=== PATIENT | male | born 1985 | race Caucasian/White ===

== ENCOUNTER → 2021-10-15 12:59 | Outpatient (ROUT) | payer OTHER, SELFPAY ==
[2021-10-15 13:06] LABS: Add Manual Diff / Slide Review NO; Basophils Absolute Auto 0 /uL (0-100); Basophils Percent Auto 0.4 % (0-2); Eosinophils Absolute Auto 100 /uL (0-450); Eosinophils Percent Auto 0.6 % (2-4); Hemoglobin 13.4 g/dL (13.5-17.5); Lymphocytes Absolute Auto 1800 /uL (1100-4500); Lymphocytes Percent Auto 18.9 % (25-40); Mean Corpuscular HGB Conc 32.6 % (30-36); Mean Corpuscular Hemoglobin 26.4 PG (26-34); Mean Corpuscular Volume 80.8 fL (80-100); Monocytes Absolute Auto 700 /uL (0-900); Monocytes Percent Auto 7.3 % (3-14); Neutrophils Absolute Auto 6900 /uL (1500-7000); Neutrophils Percent Auto 72.8 % (50-75); Platelet Count 166 X10^3/uL (150-400); Red Blood Cell Count 5.07 X10^6/uL (4.5-5.9); White Blood Cell Count 9.5 X10^3/uL (4.5-11.0)
[2021-10-15 13:15] LABS: Alanine Aminotransferase 27 IU/L (<50); Albumin 4.5 g/dL (3.5-5.0); Albumin Globulin Ratio 1.4 (1.0-2.8); Alkaline Phosphatase 100 U/L (38-126); Aspartate Aminotransferase 21 IU/L (17-59); BUN Creatinine Ratio 17.1 (6-22); Bilirubin Total 0.9 mg/dL (0.2-1.3); Blood Urea Nitrogen 12 mg/dL (9-20); Calcium 10.2 mg/dL (8.4-10.2); Carbon Dioxide 28 mmol/L (22-32); Chloride 104 mmol/L (98-107); Estimated Glomerular Filt Rate > 60.0 mL/min (>60); Globulin 3.3 g/dL (1.7-4.1); Glucose 182 mg/dL (70-100); Potassium 5.3 mmol/L (3.4-5.1); Sodium 141 mmol/L (137-145); Total Protein 7.8 g/dL (6.3-8.2)
[2021-10-15 23:34] LABS: Amylase 95 U/L (30-110); HEMOLYSIS < 15 (0-50); Lipase 683 U/L (23-300)
== END ==
PROVIDERS: Visit Provider Family Medicine
DX: M54.9 Dorsalgia, unspecified (principal); R50.9 Fever, unspecified; K85.90 Acute pancreatitis without necrosis or infection, unspecified
CPT/HCPCS: 80053; 82150; 83690; 85025

== ENCOUNTER → 2023-08-07 13:04 | Outpatient (ROUT) | payer OTHER, SELFPAY | PROVIDERS: Visit Provider Family Medicine | DX: I88.9 Nonspecific lymphadenitis, unspecified (principal) | CPT/HCPCS: 87081; 87147 ==

== ENCOUNTER → 2024-04-16 12:39 | Outpatient (ROUT) | payer OTHER, SELFPAY ==
[2024-04-16 13:13] LABS: Cholesterol 154 mg/dL (140-199); HDL Cholesterol 20 mg/dL (40-60)
[2024-04-16 13:44] LABS: Triglycerides 1323 mg/dL (35-150)
== END ==
PROVIDERS: Visit Provider Family Medicine
DX: E78.1 Pure hyperglyceridemia (principal)
CPT/HCPCS: 80061

== ENCOUNTER → 2024-07-04 10:14 | Outpatient (CLI) | payer OTHER, SELFPAY ==
--- NOTE | 2024-07-04 | DI.RAD.S_ITS ---
PROCEDURE: XR ANKLE RT MIN 3V INDICATIONS: Strain of right Achilles tendon, initial encounter TECHNIQUE: 3 views of the ankle were acquired. COMPARISON: None. FINDINGS: Bones: No fractures or dislocations. Ankle mortise is normally aligned. No suspicious bony lesions. Soft tissues: No tibiotalar joint effusion. Achilles tendon appears normal. IMPRESSION: No acute ankle fracture or dislocation. Dictated by: Carlos James M.D. on 07/05/2024 at 11:29 Approved by: Carlos James M.D. on 07/05/2024 at 11:31
== END ==
PROVIDERS: Referring Provider Family Medicine; Visit Provider Family Medicine
DX: S86.011A Strain of right Achilles tendon, initial encounter (principal); X58.XXXA Exposure to other specified factors, initial encounter
CPT/HCPCS: 73610

== ENCOUNTER → 2024-07-06 14:50 | Outpatient (CLI) | payer OTHER, SELFPAY ==
--- NOTE | 2024-07-06 14:53 | DI.MRI.S_ITS ---
PROCEDURE: MR ANKLE RT WO CON INDICATIONS: Strain of right Achilles tendon, initial encounter TECHNIQUE: Noncontrast sagittal T1 spin echo and T2 fast spin echo with fat saturation, axial proton density fast spin echo and T2 fast spin echo with fat saturation, coronal T1 spin echo and T2 fast spin echo with fat saturation through the ankle/hindfoot. COMPARISON: None. FINDINGS: Image quality: Excellent Tendons: Mild tenosynovitis of the posterior tibialis, and the flexor digitorum longus. Moderate tenosynovitis of the flexor hallucis longus with moderate amount of fluid at the master knot of [place]an. The extensor tendons, and the peroneal tendons are unremarkable. Severe tendinosis of the distal Achilles tendon with near complete rupture, approximately 7.5 cm proximal to the calcaneal insertion. No significant retraction of the distal Achilles tendon. Small amount of hematoma about the distal Achilles tendon. Ligaments: The anterior and the posterior tibiofibular ligaments are intact. The anterior and the posterior talofibular ligaments are intact. The calcaneofibular ligament is intact. The deep portion of the deltoid ligament is intact. Sinus tarsi: No fibrosis Plantar fascia: Mild thickening of the central cord, raising concern for plantar fasciitis. Muscles: Normal in signal. Bones: No acute fracture. No marrow edema. Small tibiotalar effusion. IMPRESSION: 1. Tenosynovitis of the flexor tendons. 2. Severe tendinosis of the distal Achilles tendon with near complete rupture. Small associated hematoma. No significant tendon retraction. 3. Findings suggestive of plantar fasciitis. Dictated by: Suma Paige M.D. on 07/08/2024 at 11:19 Approved by: Suma Paige M.D. on 07/08/2024 at 11:26
--- NOTE | 2024-07-06 14:54 | DI.MRI.S_ITS ---
PROCEDURE: MR LOWER LEG RT WO CON INDICATIONS: Strain of right Achilles tendon, initial encounter TECHNIQUE: Noncontrast coronal and sagittal T1 spin echo and STIR; axial T1 spin echo and T2 fast spin echo with fat saturation through the right leg COMPARISON: None. FINDINGS: Image quality: Excellent Bones: The visualized bone marrow demonstrates normal signal on all sequences. The overlying cortex appears intact. No fractures lines or intra-osseous lesions. Soft tissues: There is full-thickness, partial width tear of the small portion of the medial aspect of the anterior gastrocnemius aponeurosis, at the level of the mid leg, with associated small hematoma. No muscle retraction of the gastrocnemius. Additional trace hematoma tracking between the medial head of the gastrocnemius and the soleus muscle. There is mild muscle edema of the distal soleus. Complete rupture of the distal Achilles tendon, better evaluated on MR ankle of the same day. Moderate subcutaneous edema of the medial and lateral ankle. IMPRESSION: 1. Full-thickness, partial width tear of medial aspect of the anterior gastrocnemius aponeurosis, at the level of the mid leg, with associated small hematoma. 2. Rupture of the distal Achilles tendon, better evaluated on MR ankle the same day. Dictated by: Suma Paige M.D. on 07/08/2024 at 11:08 Approved by: Suma Paige M.D. on 07/08/2024 at 11:19
== END ==
PROVIDERS: PCP Family Medicine; Referring Provider Family Medicine; Visit Provider Family Medicine
DX: S86.011A Strain of right Achilles tendon, initial encounter (principal); S96.811A Strain of other specified muscles and tendons at ankle and foot level, right foot, initial encounter; S90.01XA Contusion of right ankle, initial encounter; M65.971 Unspecified synovitis and tenosynovitis, right ankle and foot; X58.XXXA Exposure to other specified factors, initial encounter
CPT/HCPCS: 73718; 73721

== ENCOUNTER → 2025-07-08 11:55 | Outpatient (ROUT) | payer OTHER, SELFPAY ==
[2025-07-08 12:39] LABS: Blood Urea Nitrogen 14 mg/dL (9-20); Calcium 9.3 mg/dL (8.4-10.2); Carbon Dioxide 21 mmol/L (22-32); Chloride 103 mmol/L (98-107); Estimated Glomerular Filt Rate > 60 mL/min (>60); Glucose 134 mg/dL (70-99); HEMOLYSIS 35 (0-50); Potassium 4.2 mmol/L (3.4-5.1); Sodium 136 mmol/L (137-145)
[2025-07-08 15:13] LABS: Microalbumi Creatinin Ratio Ur 6.0 ug/mg CR (<30)
== END ==
PROVIDERS: PCP Family Medicine; Visit Provider Family Medicine
DX: E10.69 Type 1 diabetes mellitus with other specified complication (principal); E78.5 Hyperlipidemia, unspecified; E78.1 Pure hyperglyceridemia
CPT/HCPCS: 80048; 80061; 82043; 82570; 83704

== ENCOUNTER → 2025-08-19 12:51 | Outpatient (ROUT) | payer OTHER, SELFPAY ==
[2025-08-19 13:07] LABS: Cholesterol 107 mg/dL (140-199); HDL Cholesterol 28 mg/dL (40-60)
[2025-08-19 13:20] LABS: Triglycerides 636 mg/dL (35-150)
== END ==
PROVIDERS: PCP Family Medicine; Visit Provider Family Medicine
DX: E78.1 Pure hyperglyceridemia (principal)
CPT/HCPCS: 80061